=== PATIENT | female | born 1975 | race Caucasian/White ===

== ENCOUNTER 2022-04-16 15:58 | Emergency (ER) | payer MEDICAID ==
[~2022-04-16] VITALS: Ht 152.4 cm; Wt 68.5 kg
[2022-04-16 16:11] VITALS: BP 138/95
[2022-04-16 18:14] VITALS: BP 138/95
--- NOTE | 2022-04-16 18:15 | NUR ---
Patient discharged with v/s stable. Written and verbal after care instructions given and explained. Patient verbalized understanding. Ambulatory with steady gait. All questions addressed prior to discharge. Advised to follow up with PMD.
== END 2022-04-16 18:15 | disposition home or self-care (01) ==
LOC: MED 15:58
DX: R20.2 Paresthesia of skin (principal); R03.0 Elevated blood-pressure reading, without diagnosis of hypertension; M79.602 Pain in left arm
CPT/HCPCS: 93005; 99283

== ENCOUNTER 2022-10-28 22:41 | Emergency (ER) | payer SELFPAY ==
[~2022-10-28] VITALS: Ht 154.9 cm; Wt 71.2 kg
[2022-10-28 23:12] VITALS: BP 134/93
--- NOTE | 2022-10-29 04:37 | NUR ---
PT BROUGHT BACK TO CHAIR B.
--- NOTE | 2022-10-29 05:00 | NUR ---
Dr. Jay examining patient.
[2022-10-29] MEDS ORDERED: KETOROLAC 30 MG/ML VIAL IM ONE (05:05)
--- NOTE | 2022-10-29 05:10 | NUR ---
Patient taken to X-ray.
[2022-10-29] MEDS ORDERED: ACET-10509 PO (05:31)
[2022-10-29] MEDS ORDERED: PRED20TA5 PO (05:31)
[2022-10-29 05:45] VITALS: BP 127/82
--- NOTE | 2022-10-29 05:45 | NUR ---
Patient discharged with v/s stable. Written and verbal after care instructions given and explained. Patient alert, oriented and verbalized understanding of instructions. Ambulatory with steady gait. All questions addressed prior to discharge. ID band removed. Patient advised to follow up with PMD. Rx of Tylenol and Prednisone given. Patient educated on indication of medication including possible reaction and side effects. Opportunity to ask questions provided and answered.
== END 2022-10-29 05:45 | disposition home or self-care (01) ==
LOC: MED 22:41
DX: J02.9 Acute pharyngitis, unspecified (principal); Z90.49 Acquired absence of other specified parts of digestive tract
CPT/HCPCS: 70360; 96372; 99283; J1885